=== PATIENT | female | born 2000 | race Caucasian/White ===

== ENCOUNTER 2025-08-19 06:34 | Emergency (ER) | payer BC ==
[~2025-08-19] VITALS: Ht 165.1 cm; Wt 102.3 kg
[2025-08-19 06:53] VITALS: TEMP 97.9
[2025-08-19 07:40] LABS: APPEARANCE,URINE CLEAR (CLEAR); GLUCOSE, URINE (UA) NEGATIVE (NEGATIVE); LEUKOCYTE ESTERASE ,URINE NEGATIVE (NEGATIVE); NITRATE,URINE NEGATIVE (NEGATIVE); OCCULT BLOOD,URINE LARGE (NEGATIVE); SPECIFIC GRAVITIY, URINE 1.022 (1.003-1.030)
[2025-08-19 07:53] LABS: SQUAMOUS EPITHELIAL CELL,UR Few /LPF (None Seen)
[2025-08-19 07:54] LABS: HCG,QUAL URINE NEGATIVE (NEGATIVE)
[2025-08-19] MEDS ORDERED: IBUP-1554 PO (08:01)
[2025-08-19 08:13] VITALS: BP 123/78; PULSE 72; RESP 16; O2SAT 98
== END 2025-08-19 08:16 | disposition home or self-care (01) ==
LOC: EMS 06:34
DX: N92.1 Excessive and frequent menstruation with irregular cycle (principal); N83.202 Unspecified ovarian cyst, left side; Z87.59 Personal history of other complications of pregnancy, childbirth and the puerperium; Z98.890 Other specified postprocedural states
CPT/HCPCS: 81001; 84703; 99283